=== PATIENT | male | born 1955 | race Hispanic/Latino ===

== ENCOUNTER 2018-07-09 05:30 | Day surgery (SDC) | payer BC ==
[~2018-07-09] VITALS: Ht 205.7 cm; Wt 86.5 kg
[2018-07-09] VITALS (8 sets, daily range): BP systolic 82–144; BP diastolic 58–91
[2018-07-09] MEDS ORDERED: SODIUM CHLORIDE 0.9% 1000ML 1,000 ML IV ONE (05:40)
[2018-07-09] MEDS ORDERED: LOSA50TA25 PO (06:30)
[2018-07-09] MEDS ORDERED: ROSU5TAB11 PO (06:30)
[2018-07-09] MEDS ORDERED: PROPOFOL 10 MG/ML 20ML VIAL IV ONE ×2 (07:24→07:37)
== END 2018-07-09 08:35 | disposition home or self-care (01) ==
LOC: DAH 05:30
PROVIDERS: ATTEND Internal Medicine Gastroenterology
DX: D12.2 Benign neoplasm of ascending colon (principal); D12.0 Benign neoplasm of cecum; K62.1 Rectal polyp; K74.69 Other cirrhosis of liver; I10 Essential (primary) hypertension; E78.5 Hyperlipidemia, unspecified; Z79.899 Other long term (current) drug therapy; Z98.890 Other specified postprocedural states; Z68.30 Body mass index [BMI] 30.0-30.9, adult; K29.50 Unspecified chronic gastritis without bleeding; E66.9 Obesity, unspecified
CPT/HCPCS: 43239; 43251; 45380; 45385; A4606; J2704 ×2; J7030

== ENCOUNTER 2020-09-28 04:35 | Inpatient (IN) | payer BC, MEDICARE ==
[~2020-09-28] VITALS: Ht 172.7 cm; Wt 82.3 kg
[~2020-09-28 04:35] MED LIST: LOSA50TA64 PO; ROSU5TAB12 PO
[2020-09-28 05:26] LABS: APPEARANCE,URINE Cloudy (CLEAR); BILIRUBIN,URINE Negative (NEGATIVE); COLOR,URINE Dark Yellow (YELLOW); GLUCOSE, URINE (UA) Negative (NEGATIVE); KETONES,URINE Trace mg/dL (NEGATIVE); LEUKOCYTE ESTERASE ,URINE Large (NEGATIVE); NITRATE,URINE Positive (NEGATIVE); OCCULT BLOOD,URINE Small (NEGATIVE); PROTEIN,URINE Negative (NEGATIVE); UROBILINOGEN,URINE 0.2 mg/dL (0.2-1.0)
[2020-09-28 05:56] LABS: BASOPHILS % (AUTO) 0.3 % (0.0-5.0); EOSINOPHILS % (AUTO) 0.5 % (0.0-8.0); HEMATOCRIT 47.1 % (42-54); LYMPHOCYTES % (AUTO) 2.8 % (21.0-51.0); MEAN CORPUSCULAR HEMOGLOBIN 29.1 pg (27.0-33.0); MEAN CORPUSCULAR HGB CONC 35.9 g/dL (32.0-36.0); MEAN CORPUSCULAR VOLUME 81.2 fL (79-99); MONOCYTES % (AUTO) 8.2 % (3.0-13.0); NEUTROPHILS % (AUTO) 87.6 % (40.0-77.0); PLATELET COUNT (AUTO) 136 K/uL (130-400); WHITE BLOOD COUNT (AUTO) 17.3 K/uL (4.8-10.8)
[2020-09-28 05:58] LABS: BACTERIA,URINE Many /HPF (None Seen); WBC,URINE 51-100 /HPF (0-1)
[2020-09-28 06:17] LABS: ALBUMIN 3.4 g/dL (3.5-5.0); BILIRUBIN,TOTAL 1.6 mg/dL (0.2-1.0); CREATININE 1.3 mg/dL (0.5-1.5); POTASSIUM 3.6 mmol/L (3.5-5.1); TOTAL PROTEIN, SERUM 8.2 g/dL (6.0-8.3)
[2020-09-28] MEDS ORDERED: CEFTRIAXONE 1G VIAL ONE (06:23)
[2020-09-28] MEDS ORDERED: MORPHINE 2 MG SYG ONE (06:51)
[2020-09-28] MEDS ORDERED: ACETAMINOPHEN 325 MG TAB PO PRN (08:15)
[2020-09-28] MEDS ORDERED: ONDANSETRON 4MG INJ IVP PRN (08:15)
[2020-09-28] MEDS ORDERED: ZOSYN 3.375GM+NS 50ML 50 ML IV ONE ×2 (08:47→15:44)
[2020-09-28] MEDS ORDERED: ENOXAPARIN SODIUM 30 MG/0.3 ML SQ ONE (08:47)
[2020-09-28] MEDS ORDERED: DOXYCYCLINE HYCLATE 100 MG TABLET PO ONE ×2 (08:47→20:50)
[2020-09-28] MEDS: ENOXAPARIN SODIUM 30 MG/0.3 ML SQ SCH (09:00)
[2020-09-28] MEDS: DOXYCYCLINE HYCLATE 100 MG TABLET PO SCH ×2 (09:00→21:00)
[2020-09-28] MEDS: ZOSYN 3.375GM+NS 50ML 50 ML IV SCH ×2 (13:00→21:00)
[2020-09-29] VITALS (7 sets, daily range): BP systolic 105–125; BP diastolic 67–82
[2020-09-29] MEDS ORDERED: ZOSYN 3.375GM+NS 50ML 50 ML IV ONE (00:44)
[2020-09-29] MEDS ORDERED: FISH1CAP27 PO (01:41)
[2020-09-29] MEDS: ZOSYN 3.375GM+NS 50ML 50 ML IV SCH ×2 (05:36→14:18)
[2020-09-29 06:22] LABS: HEMATOCRIT 46.9 % (42-54); MEAN CORPUSCULAR HEMOGLOBIN 28.6 pg (27.0-33.0); MEAN CORPUSCULAR HGB CONC 34.8 g/dL (32.0-36.0); MEAN CORPUSCULAR VOLUME 82.4 fL (79-99); RED BLOOD CELL COUNT(AUTO) 5.69 MIL/uL (4.50-6.20); RED CELL DISTRIBUTION WIDTH 13.3 % (11.0-15.5); WHITE BLOOD COUNT (AUTO) 17.8 K/uL (4.8-10.8)
[2020-09-29 06:42] LABS: BILIRUBIN,TOTAL 2.3 mg/dL (0.2-1.0); CREATININE 1.4 mg/dL (0.5-1.5); MAGNESIUM 2.3 mg/dL (1.80-2.40); POTASSIUM 3.9 mmol/L (3.5-5.1); TOTAL PROTEIN, SERUM 7.8 g/dL (6.0-8.3)
[2020-09-29] MEDS: ENOXAPARIN SODIUM 30 MG/0.3 ML SQ SCH (10:58)
[2020-09-29] MEDS: DOXYCYCLINE HYCLATE 100 MG TABLET PO SCH ×2 (10:58→21:23)
[2020-09-30] MEDS: ZOSYN 3.375GM+NS 50ML 50 ML IV SCH ×3 (02:05→13:36)
[2020-09-30 04:15] VITALS: BP 101/69
[2020-09-30 07:30] VITALS: BP 112/78
[2020-09-30] MEDS: DOXYCYCLINE HYCLATE 100 MG TABLET PO SCH (09:27)
[2020-09-30] MEDS: ENOXAPARIN SODIUM 30 MG/0.3 ML SQ SCH (09:28)
[2020-09-30 11:00] VITALS: BP 112/73
[2020-09-30 14:04] LABS: HEMATOCRIT 47.9 % (42-54); MEAN CORPUSCULAR HEMOGLOBIN 28.9 pg (27.0-33.0); MEAN CORPUSCULAR HGB CONC 34.4 g/dL (32.0-36.0); RED BLOOD CELL COUNT(AUTO) 5.7 MIL/uL (4.50-6.20); RED CELL DISTRIBUTION WIDTH 13.3 % (11.0-15.5); WHITE BLOOD COUNT (AUTO) 11.8 K/uL (4.8-10.8)
[2020-09-30 16:00] VITALS: BP 115/81
[2020-10-04 11:10] LABS: CHLAMYDIA DNA N.A.AMPLIFY Negative (Negative)
== END 2020-09-30 16:35 | disposition home or self-care (01) | DRG 872 ==
LOC: EDH 04:35 → EDHIP 07:40 → OBSVTOIN 07:40 → 3CH 09-29 01:00
PROVIDERS: ADMIT Internal Medicine Infectious Disease; ATTEND Internal Medicine Infectious Disease
DX: A41.50 Gram-negative sepsis, unspecified (principal); N39.0 Urinary tract infection, site not specified; N45.2 Orchitis; I10 Essential (primary) hypertension; E78.5 Hyperlipidemia, unspecified; N40.1 Benign prostatic hyperplasia with lower urinary tract symptoms; R33.8 Other retention of urine; K74.60 Unspecified cirrhosis of liver; B96.20 Unspecified Escherichia coli [E. coli] as the cause of diseases classified elsewhere; K80.20 Calculus of gallbladder without cholecystitis without obstruction; E66.9 Obesity, unspecified; Z68.27 Body mass index [BMI] 27.0-27.9, adult; Z88.6 Allergy status to analgesic agent; Z91.018 Allergy to other foods
CPT/HCPCS: 36415; 74176; 76870; 80053; 81001; 82948; 83735; 85025; 85027; 87077; 87088; 87186; 87486; 87797; G0378; J0696; J1650; J2543